=== PATIENT | female | born 1980 ===

== ENCOUNTER 2023-07-02 13:57 | Emergency (ER) | payer OTHER ==
[~2023-07-02] VITALS: Ht 157 cm; Wt 72.0 kg
[2023-07-02] MEDS ORDERED: IOHEXOL 350 MG/ML 100 ML (OMNIPAQUE 350) VIAL IV ONE (14:30)
[2023-07-02] MEDS ORDERED: NS 100 ML (IVPB) BAG IV ONE (14:30)
[2023-07-02] MEDS ORDERED: HOLD METFORMIN - RECEIVED CONTRAST 20 ML VIAL IV SCH (14:30)
[2023-07-02 14:48] LABS: BASOPHILS % (AUTO) 0 % (0-10); EOSINOPHILS # (AUTO) 0.2 10^3/uL (0.0-0.3); EOSINOPHILS % (AUTO) 2 % (0-10); HEMATOCRIT 36 % (35-52); LYMPHOCYTES # (AUTO) 1.8 X 10^3 (1.0-4.0); LYMPHOCYTES % (AUTO) 20 % (12-44); MEAN CORPUSCULAR HEMOGLOBIN 26 pg (25-34); MEAN CORPUSCULAR HGB CONC 33 g/dL (32-36); MEAN CORPUSCULAR VOLUME 79 fL (80-99); MEAN PLATELET VOLUME 12.7 fL (9.0-12.2); MONOCYTES # (AUTO) 0.5 X 10^3 (0.0-1.0); MONOCYTES % (AUTO) 6 % (0-12); NEUTROPHILS # (AUTO) 6.3 X 10^3 (1.8-7.8); NEUTROPHILS % (AUTO) 71 % (42-75); PLATELET COUNT 275 10^3/uL (130-400); WHITE BLOOD COUNT 8.9 10^3/uL (4.3-11.0)
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
[2023-07-02 14:51] LABS: ALBUMIN 4.5 GM/DL (3.2-4.5); POTASSIUM 3.9 MMOL/L (3.6-5.0)
[2023-07-02 14:52] LABS: CALCIUM 9.3 MG/DL (8.5-10.1)
[2023-07-02 14:54] LABS: TOTAL PROTEIN 7.9 GM/DL (6.4-8.2)
[2023-07-02 14:56] LABS: BILIRUBIN,TOTAL 0.4 MG/DL (0.1-1.0)
[2023-07-02 14:57] LABS: CREATININE SERUM 0.75 MG/DL (0.60-1.30)
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
[2023-07-02] MEDS ORDERED: ONDANSETRON 4 MG ORAL DISSOLVE TABLET SL STA (16:28)
[2023-07-02] MEDS ORDERED: HYDROcodone/ACETAMINOPHEN 5 MG/325 MG TABLET PO ONE (16:30)
[2023-07-02] MEDS ORDERED: ONDA4TAB11 PO (16:38)
[2023-07-02] MEDS ORDERED: ACHD5005 PO (16:38)
[2023-07-02 16:48] VITALS: BP 136/78
[2023-07-02 16:59] LABS: CLARITY,URINE CLEAR; COLOR,URINE YELLOW
[2023-07-02 17:00] LABS: GLUCOSE, URINE (UA) NEGATIVE (NEGATIVE); PROTEIN,URINE NEGATIVE (NEGATIVE)
[2023-07-02 17:01] LABS: BILIRUBIN,URINE NEGATIVE (NEGATIVE); KETONES,URINE NEGATIVE (NEGATIVE); LEUKOCYTE ESTERASE ,URINE NEGATIVE (NEGATIVE); NITRITE,URINE NEGATIVE (NEGATIVE)
[2023-07-02 17:02] LABS: RBC,URINE 0-2 /HPF
[2023-07-02 17:05] LABS: BACTERIA,URINE MODERATE /HPF
== END 2023-07-02 16:48 | disposition home or self-care (01) ==
LOC: ER 14:02
DX: S16.1XXA Strain of muscle, fascia and tendon at neck level, initial encounter (principal); D25.9 Leiomyoma of uterus, unspecified; V43.52XA Car driver injured in collision with other type car in traffic accident, initial encounter; Y92.410 Unspecified street and highway as the place of occurrence of the external cause
CPT/HCPCS: 36415; 70450; 71260; 72125; 74177; 80053; 81000; 84703; 85025